=== PATIENT | female | born 1980 | race Caucasian/White ===

== ENCOUNTER 2017-11-13 01:00 | Emergency (ER) | payer MEDICAID ==
[~2017-11-13] VITALS: Ht 160 cm; Wt 86.2 kg
[2017-11-13 01:12] VITALS: BP_SYST 135
[2017-11-13 01:56] LABS: BILIRUBIN,URINE 1+ (NEGATIVE); BLOOD, URINE 3+ (NEGATIVE); CLARITY/URINE CLOUDY (CLEAR); COLOR,URINE YELLOW (YELLOW); GLUCOSE,URINE NEGATIVE (NEGATIVE); KETONES,URINE NEGATIVE (NEGATIVE); LEUKOCYTE ESTERASE ,URINE 1+ (NEGATIVE); NITRITE, URINE POSITIVE (NEGATIVE); PROTEIN URINE 1+ (NEGATIVE); UROBILINOGEN,URINE 0.2 (0.2-1.0)
[2017-11-13 02:01] LABS: RBC,URINE >100 /HPF (0-3); WBC,URINE 20-50 /HPF (0-3)
[2017-11-13 02:02] LABS: BACTERIA,URINE MODERATE /HPF (None Seen)
[2017-11-13 02:15] VITALS: BP_SYST 130
== END 2017-11-13 02:15 | disposition home or self-care (01) ==
LOC: SED 01:00
DX: N39.0 Urinary tract infection, site not specified (principal)
CPT/HCPCS: 81000-TC; 81025; 87086; 87186-TC; 99284

== ENCOUNTER 2019-01-04 22:21 | Emergency (ER) | payer MEDICAID ==
[~2019-01-04] VITALS: Ht 157.5 cm; Wt 88.0 kg
[2019-01-04 22:26] VITALS: BP_SYST 157
[2019-01-04 23:29] LABS: BASOPHILS % (AUTO) 0.3 % (0.0-2.0); EOSINOPHILS # (AUTO) 0.2 K/uL (0.0-0.4); EOSINOPHILS % (AUTO) 3.1 % (0.0-4.0); HEMATOCRIT 37.5 % (36-48); HEMOGLOBIN 13.1 g/dL (12.0-16.0); LYMPHOCYTES # (AUTO) 3.2 K/uL (1.0-5.5); LYMPHOCYTES % (AUTO) 39.7 % (20.5-51.5); MEAN CORPUSCULAR HEMOGLOBIN 31 pg (27-31); MEAN CORPUSCULAR HGB CONC 35 % (32-36); MEAN CORPUSCULAR VOLUME 90 fL (79.0-98.0); MONOCYTES # (AUTO) 0.6 K/uL (0.0-1.0); NEUTROPHILS % (AUTO) 49.9 % (40.0-70.0); PLATELET COUNT (AUTO) 187 K/uL (130-430); RED BLOOD CELL COUNT(AUTO) 4.16 MIL/uL (4.2-6.2); RED CELL DISTRIBUTION WIDTH 13.3 % (9.0-15.0); WHITE BLOOD COUNT (AUTO) 8.1 K/uL (4.8-10.8)
[2019-01-04 23:42] LABS: CALCIUM 8.8 mg/dL (8.4-11.0); CREATININE 0.89 mg/dL (0.55-1.30); POTASSIUM 3.3 mmol/L (3.5-5.1)
[2019-01-04 23:48] LABS: ALBUMIN 3.5 g/dL (3.4-4.8); TOTAL BILIRUBIN 0.3 mg/dL (0.0-1.0)
[2019-01-05] MEDS ORDERED: ASPIRIN 325 MG TABLET PO ONE (00:30)
[2019-01-05] MEDS ORDERED: POTASSIUM CHLORIDE 20 MEQ TAB.PRT.SR PO ONE (00:30)
[2019-01-05] MEDS ORDERED: MAGNESIUM SULFATE 50 ML IV ONE (00:30)
[2019-01-05 03:00] VITALS: BP_SYST 121
== END 2019-01-05 03:00 | disposition home or self-care (01) ==
LOC: SED 22:21
DX: R07.89 Other chest pain (principal); R11.0 Nausea
CPT/HCPCS: 36415; 71045; 80053; 82550; 81025; 83880; 84484; 85025; 93005; 96365; 99284; J3475

== ENCOUNTER 2019-04-12 14:27 | Emergency (ER) | payer MEDICAID ==
[~2019-04-12] VITALS: Ht 157.5 cm; Wt 87.5 kg
[2019-04-12 14:36] VITALS: BP_SYST 110
[2019-04-12] MEDS ORDERED: KETOROLAC TROMETHAMINE 60 MG/2 ML VIAL IM ONE (17:00)
[2019-04-12] MEDS ORDERED: MAG HYDROX/AL HYDROX/SIMETH 30 ML, DICYCLOMINE HCL 20 MG, LIDOCAINE VISCOUS 2% 15ML (PO... PO ONE ×3 (17:00)
[2019-04-12 17:13] LABS: BASOPHILS % (AUTO) 0.5 % (0.0-2.0); EOSINOPHILS # (AUTO) 0.1 K/uL (0.0-0.4); EOSINOPHILS % (AUTO) 1.8 % (0.0-4.0); HEMATOCRIT 39.2 % (36-48); HEMOGLOBIN 13.3 g/dL (12.0-16.0); LYMPHOCYTES # (AUTO) 2.8 K/uL (1.0-5.5); LYMPHOCYTES % (AUTO) 39.2 % (20.5-51.5); MEAN CORPUSCULAR HEMOGLOBIN 30 pg (27-31); MEAN CORPUSCULAR HGB CONC 34 % (32-36); MEAN CORPUSCULAR VOLUME 90 fL (79.0-98.0); MONOCYTES # (AUTO) 0.4 K/uL (0.0-1.0); MONOCYTES % (AUTO) 5.6 % (1.7-9.3); NEUTROPHILS # (AUTO) 3.7 K/uL (1.8-7.7); NEUTROPHILS % (AUTO) 52.9 % (40.0-70.0); PLATELET COUNT (AUTO) 221 K/uL (130-430); RED BLOOD CELL COUNT(AUTO) 4.38 MIL/uL (4.2-6.2); RED CELL DISTRIBUTION WIDTH 13.3 % (9.0-15.0); WHITE BLOOD COUNT (AUTO) 7.1 K/uL (4.8-10.8)
[2019-04-12 17:34] LABS: CALCIUM 8.8 mg/dL (8.4-11.0); CREATININE 0.7 mg/dL (0.55-1.30); POTASSIUM 3.8 mmol/L (3.5-5.1)
[2019-04-12 17:47] LABS: ALBUMIN 3.7 g/dL (3.4-4.8); TOTAL BILIRUBIN 0.2 mg/dL (0.0-1.0)
[2019-04-12 20:02] VITALS: BP_SYST 112
== END 2019-04-12 20:02 | disposition home or self-care (01) ==
LOC: SED 14:27
DX: R10.12 Left upper quadrant pain (principal); R10.13 Epigastric pain
CPT/HCPCS: 36415; 80053; 81002; 81025; 83690; 85025; 96372; 99283; J1885; J2001

== ENCOUNTER 2020-05-03 18:26 | Emergency (ER) | payer MEDICAID ==
[~2020-05-03] VITALS: Ht 154.9 cm; Wt 90.7 kg
[2020-05-03 18:41] VITALS: BP_SYST 140
[2020-05-03] MEDS ORDERED: KETOROLAC TROMETHAMINE 60 MG/2 ML VIAL IM ONE ×2 (19:00→19:04)
[2020-05-03 19:17] LABS: BILIRUBIN,URINE NEGATIVE (NEGATIVE); BLOOD, URINE 1+ (NEGATIVE); CLARITY/URINE CLEAR (CLEAR); COLOR,URINE YELLOW (YELLOW); GLUCOSE,URINE NEGATIVE (NEGATIVE); KETONES,URINE NEGATIVE (NEGATIVE); LEUKOCYTE ESTERASE ,URINE NEGATIVE (NEGATIVE); NITRITE, URINE NEGATIVE (NEGATIVE); PROTEIN URINE NEGATIVE (NEGATIVE); UROBILINOGEN,URINE 0.2 (0.2-1.0)
[2020-05-03 19:22] LABS: BACTERIA,URINE FEW /HPF (None Seen); WBC,URINE 0-3 /HPF (0-3)
[2020-05-03 19:46] LABS: BASOPHILS % (AUTO) 0.6 % (0.0-2.0); EOSINOPHILS # (AUTO) 0.2 K/uL (0.0-0.4); EOSINOPHILS % (AUTO) 2.3 % (0.0-4.0); HEMATOCRIT 39.8 % (36-48); HEMOGLOBIN 13.3 g/dL (12.0-16.0); LYMPHOCYTES # (AUTO) 3.3 K/uL (1.0-5.5); LYMPHOCYTES % (AUTO) 45.2 % (20.5-51.5); MEAN CORPUSCULAR HEMOGLOBIN 30 pg (27-31); MEAN CORPUSCULAR HGB CONC 33 % (32-36); MEAN CORPUSCULAR VOLUME 89 fL (79.0-98.0); MONOCYTES # (AUTO) 0.4 K/uL (0.0-1.0); MONOCYTES % (AUTO) 5.8 % (1.7-9.3); NEUTROPHILS # (AUTO) 3.4 K/uL (1.8-7.7); NEUTROPHILS % (AUTO) 46.1 % (40.0-70.0); PLATELET COUNT (AUTO) 206 K/uL (130-430); RED BLOOD CELL COUNT(AUTO) 4.47 MIL/uL (4.2-6.2); RED CELL DISTRIBUTION WIDTH 13.7 % (9.0-15.0); WHITE BLOOD COUNT (AUTO) 7.3 K/uL (4.8-10.8)
[2020-05-03 19:54] LABS: CALCIUM 9.5 mg/dL (8.4-11.0); CREATININE 0.84 mg/dL (0.55-1.30); POTASSIUM 3.5 mmol/L (3.5-5.1)
[2020-05-03 20:00] LABS: ALBUMIN 3.7 g/dL (3.4-4.8); TOTAL BILIRUBIN 0.2 mg/dL (0.0-1.0)
[2020-05-03 20:04] LABS: INR 0.9 (0.8-1.2); PROTHROMBIN TIME 9.4 SECS (9.5-12.5)
[2020-05-03 23:07] VITALS: BP_SYST 128
== END 2020-05-03 23:07 | disposition home or self-care (01) ==
LOC: SED 18:26
DX: M54.5 Low back pain (principal); R20.2 Paresthesia of skin
CPT/HCPCS: 36415; 74176; 76376; 80053; 81000; 82150; 83605; 83690; 84703; 85025; 85610; 85730; 93005; 96372; 99285; J1885

== ENCOUNTER 2022-09-03 09:04 | Emergency (ER) | payer MEDICAID ==
[~2022-09-03] VITALS: Ht 157.5 cm; Wt 89.8 kg
[2022-09-03 09:08] VITALS: BP_SYST 130
[2022-09-03] MEDS ORDERED: DIPHTH,PERTUSS(ACELL),TET VAC 0.5 ML VIAL (Tdap) I.M. ONE (09:30)
[2022-09-03 09:33] LABS: BASOPHILS % (AUTO) 0.7 % (0.0-2.0); EOSINOPHILS # (AUTO) 0.2 K/uL (0.0-0.4); EOSINOPHILS % (AUTO) 4.8 % (0.0-4.0); HEMATOCRIT 38.8 % (36-48); LYMPHOCYTES # (AUTO) 1.7 K/uL (1.0-5.5); MEAN CORPUSCULAR HEMOGLOBIN 28 pg (27-31); MEAN CORPUSCULAR HGB CONC 34 % (32-36); MEAN CORPUSCULAR VOLUME 84 fL (79.0-98.0); MONOCYTES # (AUTO) 0.5 K/uL (0.0-1.0); MONOCYTES % (AUTO) 9.6 % (1.7-9.3); NEUTROPHILS # (AUTO) 2.5 K/uL (1.8-7.7); NEUTROPHILS % (AUTO) 50.9 % (40.0-70.0); PLATELET COUNT (AUTO) 186 K/uL (130-430); RED BLOOD CELL COUNT(AUTO) 4.62 MIL/uL (4.2-6.2); RED CELL DISTRIBUTION WIDTH 15.5 % (9.0-15.0)
[2022-09-03 09:47] LABS: ANION GAP 7 (5-15); CALCIUM 8.3 mg/dL (8.4-11.0); CHLORIDE 104 mmol/L (98-107); CREATININE 0.78 mg/dL (0.55-1.30); GFR AFRICAN AMERICAN 105 mL/min (>90); GLUCOSE 94 mg/dL (70-99); UREA NITROGEN, BLOOD 11 mg/dL (8-21)
[2022-09-03 09:52] LABS: ALANINE AMINOTRANSFERASE 19 U/L (12-78); ALBUMIN 3.7 g/dL (3.4-4.8); ASPARTATE AMINOTRANSFERASE 12 U/L (10-37); INR 0.9 (0.8-1.2); PROTHROMBIN TIME 9.6 SECS (9.5-12.5); TOTAL BILIRUBIN 0.2 mg/dL (0.0-1.0)
[2022-09-03 09:53] LABS: C-REACTIVE PROTEIN QUANT < 0.2 mg/dL (0-0.5)
[2022-09-03] MEDS ORDERED: AMOX-423 PO (10:33)
[2022-09-03 10:54] VITALS: BP_SYST 130
== END 2022-09-03 10:39 | disposition home or self-care (01) ==
LOC: SED 09:04
DX: S70.311A Abrasion, right thigh, initial encounter (principal); S80.811A Abrasion, right lower leg, initial encounter; W55.03XA Scratched by cat, initial encounter; Y93.89 Activity, other specified; Y92.89 Other specified places as the place of occurrence of the external cause; Y99.8 Other external cause status
CPT/HCPCS: 36415; 80053; 83605; 84703; 85025; 85610-TC; 85730-TC; 86140; 90715; 99283

== ENCOUNTER 2022-09-18 08:50 | Emergency (ER) | payer MEDICAID ==
[~2022-09-18] VITALS: Ht 154.9 cm; Wt 87.5 kg
[~2022-09-18 08:50] MED LIST: AMOX-423 PO
[2022-09-18 09:02] VITALS: BP_SYST 132
--- NOTE | 2022-09-18 09:05 | NUR ---
ER at bedside examining patient.
--- NOTE | 2022-09-18 09:10 | NUR ---
PT PRESENTS TO ED WITH SEVERE NECK PAIN, NO REDNESS, NO SWELLING SKIN INTACT <3 CAP REFILL, VSS, SAFETY RAILS IN PLACE PT POSITIONED TO COMFORT.
[2022-09-18] MEDS ORDERED: HYDROcodone/ACETAMIN 10-325 MG TAB PO ONE (09:15)
[2022-09-18] MEDS ORDERED: KETOROLAC TROMETHAMINE 60 MG/2 ML VIAL IM ONE (09:15)
--- NOTE | 2022-09-18 09:54 | NUR ---
REPORT TO MADELINE VUONG
[2022-09-18] MEDS ORDERED: IBUP-1969 PO (09:57)
[2022-09-18] MEDS ORDERED: TRAM50TA2 PO (09:57)
--- NOTE | 2022-09-18 11:00 | NUR ---
Patient given written and verbal discharge instructions and verbalizes understanding. ER MD discussed with patient the results and treatment provided. Patient in stable condition. ID arm band removed. Rx of given. Patient educated on pain management and to follow up with PMD. Pain Scale 0. Opportunity for questions provided and answered. Medication side effect fact sheet provided.
== END 2022-09-18 11:00 | disposition home or self-care (01) ==
LOC: SED 08:50
DX: M54.12 Radiculopathy, cervical region (principal); M54.6 Pain in thoracic spine; M54.2 Cervicalgia; M25.512 Pain in left shoulder; Z79.899 Other long term (current) drug therapy
CPT/HCPCS: 99283; 72040; 96372; J1885

== ENCOUNTER 2022-09-30 08:07 | Emergency (ER) | payer MEDICAID ==
[~2022-09-30] VITALS: Ht 154.9 cm; Wt 87.5 kg
[~2022-09-30 08:07] MED LIST changes: +IBUP-1969 PO; +TRAM50TA2 PO
[2022-09-30 08:14] VITALS: BP_SYST 124
[2022-09-30] MEDS ORDERED: ONDANSETRON 4 MG ODT TAB PO ONE (08:45)
[2022-09-30] MEDS ORDERED: MORPHINE 4 MG INJ. 4 MG/ML VIAL IM ONE (08:45)
[2022-09-30] MEDS ORDERED: BACLOFEN 10 MG TABLET PO ONE (08:45)
[2022-09-30] MEDS ORDERED: GABAPENTIN 300 MG CAPSULE PO ONE (08:45)
[2022-09-30] MEDS ORDERED: LIDO1ADH22 TP (09:27)
[2022-09-30] MEDS ORDERED: NEU300 PO (09:27)
[2022-09-30] MEDS ORDERED: IBUP-1970 PO (09:27)
[2022-09-30] MEDS ORDERED: BACL10TA PO (09:27)
[2022-09-30 09:40] VITALS: BP_SYST 124
== END 2022-09-30 09:39 | disposition home or self-care (01) ==
LOC: SED 08:07
DX: M54.12 Radiculopathy, cervical region (principal); M51.26 Other intervertebral disc displacement, lumbar region; Z79.899 Other long term (current) drug therapy
CPT/HCPCS: 99284; 81025; 96372; Q0162; J2270

== ENCOUNTER 2022-10-26 10:40 | Emergency (ER) | payer MEDICAID ==
[~2022-10-26] VITALS: Ht 154.9 cm; Wt 87.5 kg
[~2022-10-26 10:40] MED LIST changes: +BACL10TA PO; +IBUP-1970 PO; +LIDO1ADH22 TP; +NEU300 PO
[2022-10-26 10:51] VITALS: BP_SYST 132; PULSE 76; RESP 16; TEMP 97.8; O2SAT 99
--- NOTE | 2022-10-26 10:51 | NUR ---
PT PLACED IN BED #8. REPORT GIVEN TO ANDREW
--- NOTE | 2022-10-26 12:00 | NUR ---
Pt C/O left sided pain that started from lower back AOX4 VSS Able to make needs known Will continue to monitor
--- NOTE | 2022-10-26 12:20 | NUR ---
DR AMARO OUT TO TRIAGE ROOM FOR EVALUATION
[2022-10-26] MEDS ORDERED: NEU300 PO (12:51)
[2022-10-26] MEDS ORDERED: IBUP-1969 PO (12:51)
[2022-10-26] MEDS ORDERED: TRAM50TA2 PO (12:51)
[2022-10-26] MEDS ORDERED: BACL10TA PO (12:51)
--- NOTE | 2022-10-26 12:57 | NUR ---
Patient given written and verbal discharge instructions and verbalizes understanding. ER MD discussed with patient the results and treatment provided. Patient in stable condition. ID arm band removed. Rx of BACLOFEN, IBUPROFEN, NEURONTIN, TRAMADOL given. Patient educated on pain management and to follow up with PMD. Pain Scale 0/10. Opportunity for questions provided and answered. Medication side effect fact sheet provided.
[2022-10-26 13:17] VITALS: PULSE 69; RESP 16; TEMP 97.6; O2SAT 98
== END 2022-10-26 12:57 | disposition home or self-care (01) ==
LOC: SED 10:40
DX: M54.50 Low back pain, unspecified (principal); M54.6 Pain in thoracic spine; Z79.899 Other long term (current) drug therapy
CPT/HCPCS: 99283

== ENCOUNTER 2022-11-13 08:39 | Emergency (ER) | payer MEDICAID ==
[~2022-11-13] VITALS: Ht 154.9 cm; Wt 87.5 kg
[2022-11-13 08:49] VITALS: BP_SYST 155; PULSE 94; RESP 17; TEMP 97.7
--- NOTE | 2022-11-13 08:59 | NUR ---
TRIAGE PT AND PLACED IN ROOM 2. ASSUMED CARE. PT BIBS FOR C/O LEFT SIDE ARM NUMBNESS, LEFT LEG PAIN AND WEAKNESS, LEFT JAW PAIN. PT IS [id number]. ON R/A. DENIES N/V/D/C. TELEMONITOR SHOWS TACHYCARDIA. DISTAL PULSES NORMAL, SKIN CDI, NO EDEMA NOTED. SIDERAILS UP X2. PMH: BULGING LUMBAR DISCS.
--- NOTE | 2022-11-13 09:01 | NUR ---
DR. ESTES AT BEDSIDE TO ASSESS PT.
[2022-11-13 09:20] LABS: BASOPHILS # (AUTO) 0.1 K/uL (0.0-0.2); BASOPHILS % (AUTO) 0.9 % (0.0-2.0); EOSINOPHILS # (AUTO) 0.1 K/uL (0.0-0.4); EOSINOPHILS % (AUTO) 1.7 % (0.0-4.0); HEMATOCRIT 40.7 % (36-48); HEMOGLOBIN 13.2 g/dL (12.0-16.0); LYMPHOCYTES # (AUTO) 2.8 K/uL (1.0-5.5); LYMPHOCYTES % (AUTO) 34.9 % (20.5-51.5); MEAN CORPUSCULAR HEMOGLOBIN 27 pg (27-31); MEAN CORPUSCULAR HGB CONC 33 % (32-36); MEAN CORPUSCULAR VOLUME 84 fL (79.0-98.0); MONOCYTES # (AUTO) 0.6 K/uL (0.0-1.0); MONOCYTES % (AUTO) 7.8 % (1.7-9.3); NEUTROPHILS # (AUTO) 4.3 K/uL (1.8-7.7); NEUTROPHILS % (AUTO) 54.7 % (40.0-70.0); PLATELET COUNT (AUTO) 209 K/uL (130-430); RED BLOOD CELL COUNT(AUTO) 4.85 MIL/uL (4.2-6.2); RED CELL DISTRIBUTION WIDTH 15.1 % (9.0-15.0); WHITE BLOOD COUNT (AUTO) 7.9 K/uL (4.8-10.8)
--- NOTE | 2022-11-13 09:34 | NUR ---
BLOOD SAMPLES TAKEN TO LAB.
[2022-11-13 09:42] LABS: ALBUMIN 3.7 g/dL (3.4-4.8); CALCIUM 8.9 mg/dL (8.4-11.0); CREATININE 0.79 mg/dL (0.55-1.30); TOTAL BILIRUBIN 0.2 mg/dL (0.0-1.0)
--- NOTE | 2022-11-13 09:44 | NUR ---
PT RECEIVING U/S AT THIS TIME.
[2022-11-13] MEDS ORDERED: NEU300 PO (10:34)
[2022-11-13] MEDS ORDERED: BACL10TA PO (10:34)
[2022-11-13] MEDS ORDERED: TRAM50TA2 PO (10:34)
[2022-11-13 10:39] VITALS: BP_SYST 132; PULSE 72; RESP 16; TEMP 97.7; O2SAT 97
--- NOTE | 2022-11-13 10:45 | NUR ---
Patient given written and verbal discharge instructions and verbalizes understanding. ER MD discussed with patient the results and treatment provided. Patient in stable condition. ID arm band removed. IV catheter removed intact and dressing applied, no active bleeding. BACLOFEN, Patient educated on pain management and to follow up with PMD. Pain Scale 0/10. Opportunity for questions provided and answered. Medication side effect fact sheet provided.
== END 2022-11-13 10:45 | disposition home or self-care (01) ==
LOC: SED 08:39
DX: R25.2 Cramp and spasm (principal); R20.2 Paresthesia of skin; Z79.899 Other long term (current) drug therapy
CPT/HCPCS: 36415; 80053; 82962; 85025; 93971; 99284

== ENCOUNTER 2023-11-11 10:30 | Emergency (ER) | payer MEDICAID ==
[~2023-11-11] VITALS: Ht 157.5 cm; Wt 90.7 kg
[2023-11-11 10:37] VITALS: BP_SYST 122; PULSE 87; RESP 18; TEMP 96.7; O2SAT 98
[2023-11-11] MEDS ORDERED: DICL50TA9 PO (11:47)
[2023-11-11 12:14] VITALS: BP_SYST 121; PULSE 72; RESP 16; TEMP 96.7; O2SAT 98
== END 2023-11-11 12:14 | disposition home or self-care (01) ==
LOC: SED 10:30
DX: M25.561 Pain in right knee (principal); Z79.899 Other long term (current) drug therapy; Z79.2 Long term (current) use of antibiotics
CPT/HCPCS: 73560; 99283